=== PATIENT | male | born 1990 ===

== ENCOUNTER 2018-05-27 13:51 | Emergency (ER) | payer OTHER ==
[2018-05-27 14:20] VITALS: BMI 29.2
[2018-05-27 14:22] VITALS: RESP 18
[2018-05-27 15:42] LABS: BASO % 0.4 % (0.0-2.0); EOS % 0.3 % (0.0-4.0); HEMOGLOBIN 16.6 g/dL (12.0-18.0); LYMPH % 25.6 % (20.0-40.0); MEAN CELL VOLUME 87.3 fL (80.0-94.0); MEAN CORPUSCULAR HEMOGLOBIN 28.8 pg (27.0-31.0); MEAN PLATELET VOLUME 9.4 fL (7.2-11.7); MONO # 0.5 K/uL (0.0-0.8); MONO % 6.1 % (0.0-10.0); NEUT # 5.4 K/uL (1.8-7.0); NEUT % 67.6 % (50.0-75.0); NRBC % 0.5 % (0.0-2.0); RBC 5.77 Mil/uL (4.40-5.90); RED CELL DISTRIBUTION WIDTH 13.2 % (11.5-14.5)
[2018-05-27 15:48] LABS: PROTHROMBIN TIME 11.3 SECONDS (9.7-12.2)
[2018-05-27 15:58] LABS: ALB/GLOB RATIO 1.4 (1.0-2.1); ALBUMIN 4.9 g/dL (3.5-5.0); ALT/SGPT 45 U/L (21-72); AST/SGOT 37 U/L (17-59); BLOOD UREA NITROGEN 10 mg/dL (9-20); CALCIUM 9.1 mg/dl (8.6-10.4); GFR NON-AFRICAN AMERICAN > 60
[2018-05-27] MEDS ORDERED: Iodixanol 320 MG/ML 100 ML BOTTLE IV ONE (16:55)
--- NOTE | 2018-05-27 17:27 | C.PDOC ---
History Of Present Illness 27 y/o male presents to the ED for evaluation of abdominal pain and leg pain that began 3 hours [employer]. Patient states while at work, a sandbag fell onto his lower abdomen and bilateral upper legs. A report was done at work. Patient is now having pain to the bilateral upper legs and the lower abdomen. Denies head trauma, LOC, neck pain, numbness, weakness, chest pain, or SOB. Time Seen by Provider: 05/27/18 14:29 Chief Complaint (Nursing): Lower Extremity Problem/Injury History Per: Patient History/Exam Limitations: no limitations Onset/Duration Of Symptoms: Hrs (3) Current Symptoms Are (Timing): Still Present Past Medical History Reviewed: Historical Data, Nursing Documentation, Vital Signs Vital Signs: Last Vital Signs Temp 98.6 F 05/27/18 14:20 Pulse 85 05/27/18 14:20 Resp 18 05/27/18 14:20 BP 123/56 L 05/27/18 14:20 Pulse Ox 98 05/27/18 14:20 - Medical History PMH: No Chronic Diseases Surgical History: Appendectomy Family History: States: No Known Family Hx - Social History Hx Tobacco Use: Yes (light) Hx Alcohol Use: No Hx Substance Use: No - Immunization History Hx Tetanus Toxoid Vaccination: Yes Hx Influenza Vaccination: No Hx Pneumococcal Vaccination: No Review Of Systems Constitutional: Negative for: Fever Eyes: Negative for: Vision Change Cardiovascular: Negative for: Chest Pain Respiratory: Negative for: Shortness of Breath Gastrointestinal: Positive for: Abdominal Pain (lower). Negative for: Nausea, Vomiting Genitourinary: Negative for: Incontinence, Hematuria Musculoskeletal: Positive for: Leg Pain (B/L upper legs). Negative for: Neck Pain, Back Pain Skin: Negative for: Rash Neurological: Negative for: Weakness, Numbness Physical Exam - Physical Exam Appears: Non-toxic, No Acute Distress Skin: Normal Color, Warm, No Rash Head: Atraumatic, Normacephalic Eye(s): bilateral: Normal Inspection, PERRL, EOMI Oral Mucosa: Moist Throat: No Erythema, No Exudate Neck: Normal ROM, Supple Chest: Symmetrical Cardiovascular: Rhythm Regular, No Friction Rub, No Murmur Respiratory: Normal Breath Sounds, No Accessory Muscle Use, Other (No respiratory distress) Gastrointestinal/Abdominal: Soft, Tenderness (Mild tenderness to the lower abdomen ), No Distention, No Guarding Back: Normal Inspection (no rashes or skin changes), No Vertebral Tenderness Extremity: Normal ROM, Capillary Refill (< 2 sec), Other ((+) tenderness and mild swelling to the right knee and upper leg.) Extremity: Bilateral: Normal Color And Temperature, Normal ROM, Other (Mild tenderness to the anterior bilateral upper legs) Pulses: Left Dorsalis Pedis: Normal, Right Dorsalis Pedis: Normal Neurological/Psych: Oriented x3, Normal Speech, Normal Motor, Normal Sensation ED Course And Treatment - Laboratory Results Result Diagrams: 05/27/18 15:33 05/27/18 15:33 Lab Results: PT 11.3 SECONDS (9.7-12.2) 05/27/18 15:33 INR 1.0 05/27/18 15:33 APTT 33 SECONDS (21-34) 05/27/18 15:33 Total Bilirubin 0.9 mg/dL (0.2-1.3) 05/27/18 15:33 AST 37 U/L (17-59) 05/27/18 15:33 ALT 45 U/L (21-72) 05/27/18 15:33 Alkaline Phosphatase 81 U/L (38-126) 05/27/18 15:33 Total Protein 8.5 g/dL (6.3-8.3) H 05/27/18 15:33 Albumin 4.9 g/dL (3.5-5.0) 05/27/18 15:33 Globulin 3.5 gm/dL (2.2-3.9) 05/27/18 15:33 Albumin/Globulin Ratio 1.4 (1.0-2.1) 05/27/18 15:33 O2 Sat by Pulse Oximetry: 98 (RA) Pulse Ox Interpretation: Normal - CT Scan/US CT Abdomen/Pelvis Other Rad Studies (CT/US): Read By Radiologist, Radiology Report Reviewed CT/US Interpretation: Accession No. : [id number]. Patient Name / ID : TERRANCE JOHNSON / [id number]. Exam Date : 05/27/2018 17:35:20 ( Approved ). Study Comment : Sex / Age : M / 27Y. Creator : Meghan Flores. Dictator : Michelle Mcclure MD. Wood Fence Erector : Dry Janitor : Michelle Mcclure MD. Approver2 : Report Date : 05/27/2018 17:59:18. My Comment : . Date of service: 05/27/2018. PROCEDURE: CT Abdomen and Pelvis with contrast. HISTORY: abd trauma, sand bag fell onto pelvis and abd. COMPARISON: None available. TECHNIQUE: Contrast dose: 100 mL Visipaque 320 IV. Radiation dose: Total exam DLP = 829.31 mGy-cm. This CT exam was performed using one or more of the following dose reduction techniques: Automated exposure control, adjustment of the mA and/or kV according to patient size, and/or use of iterative reconstruction technique. FINDINGS: LOWER THORAX: No visible consolidation, pleural effusion, or pneumothorax. LIVER: Unremarkable. GALLBLADDER AND BILE DUCTS: Unremarkable. PANCREAS: Unremarkable. SPLEEN: Unremarkable. ADRENALS: Unremarkable. KIDNEYS AND URETERS: The kidneys enhance symmetrically. No hydronephrosis or obstructing calculus identified. VASCULATURE: No aortic aneurysm. No atherosclerotic calcification or mural plaque present. BOWEL: Stomach is nondistended. Lack of oral contrast limits evaluation for bowel pathology. Bowel loops appear within normal limits of caliber without evidence of obstruction. APPENDIX: The appendix is not identified; correlate for history of appendectomy. No secondary signs of acute appendicitis. PERITONEUM: No significant free fluid. No definite free air. LYMPH NODES: No bulky adenopathy identified. BLADDER: Distended urinary bladder appears otherwise unremarkable. REPRODUCTIVE: Unremarkable. BONES: No acute osseous abnormality is detected. OTHER FINDINGS: None. IMPRESSION: No acute pathology identified. Medical Decision Making Medical Decision Making: Plan: - CMP - CBC - PTT/PT - B/L Femur x-ray - CT Abdomen/Pelvis - 650 mg PO Tylenol - Reassess Labs reviewed. Blood work is grossly normal. X-ray is negative. CT scan shows no acute abnormality. Results discussed w/ patient. Patient is resting comfortably on re-evaluation, in no acute distress. Pt is amb ulatory in the ED steady gait. Plan is to discharge patient home. Disposition - Disposition Referrals: Andrade Orourke MD [Non-Staff] - Disposition: HOME/ ROUTINE Disposition Time: 18:34 Condition: GOOD Additional Instructions: Follow up with the Orthopedist within 1-2 days. Return if worsened. 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 - Scribe Statement The provider has reviewed the documentation as recorded by the Scribangel Talbert All medical record entries made by the Rubénibangel were at my direction and personally dictated by me. I have reviewed the chart and agree that the record accurately reflects my personal performance of the history, physical exam, medical decision making, and the department course for this patient. I have also personally directed, reviewed, and agree with the discharge instructions and disposition.
--- NOTE | 2018-05-27 18:18 | CT ---
Date of service: 05/27/2018 PROCEDURE: CT Abdomen and Pelvis with contrast HISTORY: abd trauma, sand bag fell onto pelvis and abd COMPARISON: None available. TECHNIQUE: Contrast dose: 100 mL Visipaque 320 IV Radiation dose: Total exam DLP = 829.31 mGy-cm. This CT exam was performed using one or more of the following dose reduction techniques: Automated exposure control, adjustment of the mA and/or kV according to patient size, and/or use of iterative reconstruction technique. FINDINGS: LOWER THORAX: No visible consolidation, pleural effusion, or pneumothorax. LIVER: Unremarkable. GALLBLADDER AND BILE DUCTS: Unremarkable. PANCREAS: Unremarkable. SPLEEN: Unremarkable. ADRENALS: Unremarkable. KIDNEYS AND URETERS: The kidneys enhance symmetrically. No hydronephrosis or obstructing calculus identified. VASCULATURE: No aortic aneurysm. No atherosclerotic calcification or mural plaque present. BOWEL: Stomach is nondistended. Lack of oral contrast limits evaluation for bowel pathology. Bowel loops appear within normal limits of caliber without evidence of obstruction. APPENDIX: The appendix is not identified; correlate for history of appendectomy. No secondary signs of acute appendicitis. PERITONEUM: No significant free fluid. No definite free air. LYMPH NODES: No bulky adenopathy identified. BLADDER: Distended urinary bladder appears otherwise unremarkable. REPRODUCTIVE: Unremarkable. BONES: No acute osseous abnormality is detected. OTHER FINDINGS: None. IMPRESSION: No acute pathology identified.
--- NOTE | 2018-05-27 18:37 | RAD ---
Date of service: 05/27/2018 Indication: trauma to bilateral upper leg Bilateral femur radiographs Comparison: None available Findings: Soft tissues appear unremarkable. No acute displaced fracture or dislocation identified. No evidence of radiopaque foreign body. Impression: No acute findings identified.
[2018-05-27 19:23] VITALS: BP 135/88; PULSE 80; TEMP 98.1
[2018-05-29 05:31] VITALS: O2SAT 98
== END 2018-05-27 19:24 | disposition home or self-care (01) ==
LOC: C.ER 13:51
DX: S80.12XA Contusion of left lower leg, initial encounter (principal); S80.11XA Contusion of right lower leg, initial encounter; W22.8XXA Striking against or struck by other objects, initial encounter; Y92.89 Other specified places as the place of occurrence of the external cause; Y99.0 Civilian activity done for income or pay
CPT/HCPCS: 73552; 74177; 80053; 85025; 85610; 85730; 99285; Q9967